=== PATIENT | female | born 1980 | race African-American/Black ===

== ENCOUNTER 2017-01-13 19:42 | Emergency (ER) | payer OTHER ==
[2017-01-13 19:53] VITALS: BP 130/51; PULSE 94; TEMP 98.4; BMI 34.3
[2017-01-13 20:24] LABS: URINE APPEARANCE CLEAR; URINE BILIRUBIN NEGATIVE (NEGATIVE); URINE BLOOD NEGATIVE (NEGATIVE); URINE COLOR LTYELLOW; URINE GLUCOSE (UA) NEGATIVE (NEGATIVE); URINE KETONE NEGATIVE (NEGATIVE); URINE NITRITE NEGATIVE (NEGATIVE); URINE UROBILINOGEN NEGATIVE mg/dL (0.2-1.0)
--- NOTE | 2017-01-13 20:25 | PDOC ---
History of Present Illness - General Chief Complaint: Back Pain Stated Complaint: BACK PAIN Time Seen by Provider: 01/13/17 20:10 History Source: Patient Exam Limitations: No Limitations - History of Present Illness Initial Comments: 01/13/17 20:21 36 yr female with c/o mid upperback pain after piee of jaxe fell from the ceiling and hit her back this afternoon. no loc no head injury no shortness of breath. pt did not take any pain meds [employer]. Occurred: reports: this afternoon Severity: reports: mild Pain Location: reports: back (upper back ) Method of Injury: Yes: direct blow Modifying Factors: improves with: None Loss of Consciousness: no loss of consciousness Associated Symptoms (Fall): denies symptoms Past History - Past Medical History Allergies/Adverse Reactions: Allergies Allergy/AdvReac Type Severity Reaction Status Date / Time No Known Allergies Allergy Verified 01/13/17 19:52 Home Medications: Ambulatory Orders NK [No Known Home Medication] 01/13/17 - Suicide/Smoking/Psychosocial Hx Smoking History: Never smoked Have you smoked in the past 12 months: No Information on smoking cessation initiated: No Hx Alcohol Use: No Drug/Substance Use Hx: No Review of Systems - Review of Systems Able to Perform ROS?: Yes Is the patient limited Belgian proficient: No Constitutional: No: Symptoms Reported HEENTM: No: Symptoms Reported Respiratory: No: Symptoms reported Cardiac (ROS): No: Symptoms Reported ABD/GI: No: Symptoms Reported : No: Symptoms Reported Musculoskeletal: Yes: See HPI, Back Pain Integumentary: No: Symptoms Reported *Physical Exam - Vital Signs Last Vital Signs Temp Pulse Resp BP Pulse Ox 98.4 F 94 H 18 130/51 100 01/13/17 19:50 01/13/17 19:50 01/13/17 19:50 01/13/17 19:50 01/13/17 19:50 - Physical Exam General Appearance: Yes: Nourished, Appropriately Dressed HEENT: positive: EOMI, ROBERT Neck: positive: Supple. negative: Tender Respiratory/Chest: positive: Lungs Clear, Normal Breath Sounds. negative: Chest Tender Cardiovascular: positive: Regular Rhythm, Regular Rate Musculoskeletal: positive: Normal Inspection, Other (no evidence of trauma to back, soft tissue tenderness to mid upper back muscles , neg bruising). negative: CVA Tenderness (L), Decreased Range of Motion, Muscle Spasm, Vertebral Tenderness Extremity: positive: Normal Capillary Refill, Normal Inspection, Normal Range of Motion Integumentary: positive: Normal Color, Dry, Warm Neurologic: positive: commercial producer II-XII NML intact, Fully Oriented, Alert, Normal Mood/ Affect, Motor Strength 07/23 ED Treatment Course - ADDITIONAL ORDERS Additional order review: Laboratory Results 01/13/17 20:00 Urine HCG, Qual Negative Medical Decision Making - Medical Decision Making 01/13/17 20:23 cc: piece of tile fell on her back no loc pt has no SOB no chest pain pain to the iddle of her back did not take any pain meds will r/o spine xray motrin for pain *DC/Admit/Observation/Transfer Diagnosis at time of Disposition: Muscle contusion - Discharge Dispostion Disposition: HOME Condition at time of disposition: Good - Referrals Referrals: Barrett Cooper MD [Primary Care Provider] - - Patient Instructions Additional Instructions: apply ice every 2hrs for 20 minutes to are of pain take motrin 600mg every 6hrs for pain follow with your doctor in 2-3 days for follow up return to ER for any worsening symptoms
[2017-01-13 20:26] LABS: URINE PROTEIN 2+ (NEGATIVE)
[2017-01-13] MEDS ORDERED: IBUPROFEN 600 MG TABLET (FP) PO ONE (20:26)
[2017-01-13] MEDS ORDERED: IBUPROFEN 400 MG TABLET (FP) PO ONE (20:29)
[2017-01-13 20:39] LABS: URINE MUCUS RARE; URINE WBC 3 /hpf (3-5)
[2017-01-13 21:10] LABS: URINE LEUK ESTERASE Negative (NEGATIVE)
== END 2017-01-13 21:26 | disposition home or self-care (01) ==
LOC: JER 19:42
DX: S20.229A Contusion of unspecified back wall of thorax, initial encounter (principal); W20.1XXA Struck by object due to collapse of building, initial encounter; Y93.89 Activity, other specified; Y92.039 Unspecified place in apartment as the place of occurrence of the external cause; Y99.8 Other external cause status
CPT/HCPCS: 72070-TC; 81003; 81015; 84703; 99281-25